=== PATIENT | male | born 1950 | race Caucasian/White ===

== ENCOUNTER 2019-12-17 13:07 | Emergency (ER) | payer SELFPAY ==
[~2019-12-17] VITALS: Ht 200.7 cm; Wt 125.6 kg
--- NOTE | 2019-12-17 13:56 | Emergency Department Note ---
History of Present Illnes History of Present Illness Chief Complaint: Genitourinary History of Present Illness This is a 69 year old male . 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 Any updates have been documented here. 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 called oncologist and told to come in for further eval Review of Systems Constitutional: Reports no symptoms EENTM: Reports no symptoms Cardiovascular: Reports no symptoms Respiratory: Reports no symptoms Gastrointestinal: Reports no symptoms Genitourinary: Reports dysuria, Reports hematuria Musculoskeletal: Reports no symptoms Integumentary: Reports no symptoms Neurological: Reports no symptoms Psychological: Reports no symptoms Endocrine: Reports no symptoms Hematological/Lymphatic: Reports no symptoms Physical Exam Related Data Allergies: Coded Allergies: No Known Allergies (Unverified , 12/17/19) Triage Vital Signs Vital Signs Date Time Temp Pulse Resp B/P (MAP) Pulse Ox O2 Delivery O2 Flow Rate FiO2 12/17/19 13:44 98.1 78 18 116/67 99 Vital signs reviewed: Yes Physical Exam CONSTITUTIONAL Constitutional: Present well-developed, Present well-nourished HENT HENT: Present normocephalic, Present atraumatic, Present oropharynx clear/moist, Present nose normal HENT L/R: Present left ext ear normal, Present right ext ear normal EYES Eyes: Reports PERRL, Reports conjunctivae normal NECK Neck: Present ROM normal PULMONARY Pulmonary: Present effort normal, Present breath sounds normal CARDIOVASCULAR Cardiovascular: Present regular rhythm, Present heart sounds normal, Present capillary refill normal, Present normal rate GASTROINTESTINAL Abdominal: Present soft, Present nontender, Present bowel sounds normal GENITOURINARY Genitourinary: Present other SKIN Skin: Present warm, Present dry MUSCULOSKELETAL Musculoskeletal: Present other (pain with sitting d/t CA that has 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) NEUROLOGICAL Neurological: Present alert, Present oriented x 3, Present no gross motor or sensory deficits PSYCHOLOGICAL Psychological: Present mood/affect normal, Present judgement normal Results Laboratory Lab results reviewed: Yes Imaging Imaging results reviewed: Yes Assessment & Plan Medical Decision Making MDM KUB to check to check the double J and an UA OK to DC home with medication Reassessment Reassessment time: 14:46 Reassessment Discussed with patient DC treatment plan, states all understanding Assessment & Plan Final Impression: (1) Hematuria Depart Disposition: HOME, SELF-CARE Last Vital Signs Date Time Temp Pulse Resp B/P (MAP) Pulse Ox O2 Delivery O2 Flow Rate FiO2 12/17/19 13:44 98.1 78 18 116/67 99 FRANKIE FONG Dec 17, 2019 13:56
[2019-12-17] MEDS ORDERED: FENTANYL 50 MCG/HR PATCH TOP SCH (14:15)
[2019-12-17] MEDS ORDERED: AMOXICILLIN/CLAVULANATE K 500 MG TAB PO ONE (14:35)
[2019-12-17 14:45] LABS: BILIRUBIN,URINE NEGATIVE (NEGATIVE); CLARITY,URINE TURBID (CLEAR); COLOR,URINE RED (YELLOW); KETONES,URINE NEGATIVE (NEGATIVE); LEUKOCYTE ESTERASE ,URINE TRACE (NEGATIVE); NITRITE,URINE NEGATIVE (NEGATIVE); PROTEIN,URINE DIPSTICK >=300 (NEGATIVE); URINE UROBILINOGEN 0.2 mg/dL (0.2 - 1)
[2019-12-17 14:50] LABS: RBC,URINE >50 /HPF (0-5)
[2019-12-17 14:51] LABS: BACTERIA,URINE RARE /HPF; EPITHELIAL CELLS,URINE RARE /LPF
--- NOTE | 2019-12-17 14:55 | Diagnostic Imaging Report ---
EXAM: Abdomen 3 radiographs INDICATION: ^stent ^[id number] ^[id number] ^Y COMPARISON: CT dated 07/17/2018 FINDINGS: Right nephroureteral stent in appropriate position. Nonobstructive bowel gas pattern. No signs of pneumoperitoneum. Partially visualized right upper quadrant irregular hyperdensity, which could represent contrast mixed with ingested material or pleural calcification, seen on prior CT. Confluent sclerotic lesions of the bilateral pelvic bones, mostly involving the pubic rami, right greater than left, consistent with metastatic disease. IMPRESSION: 1. Nonobstructive bowel gas pattern. 2. Limited for evaluation of upper abdomen, as it is excluded from the [id number]. 3. Right nephroureteral stent in appropriate position. Signed by: Dr. Gonzalo Bob MD on 12/17/2019 2:52 PM
== END 2019-12-17 15:18 | disposition home or self-care (01) ==
LOC: ER 15:17
DX: R31.9 Hematuria, unspecified (principal); C61 Malignant neoplasm of prostate
CPT/HCPCS: 74018; 81001; 87086; 99283